=== PATIENT | female | born 1990 | race American Indian/Alaskan Native ===

== ENCOUNTER 2016-10-26 23:19 | Emergency (ER) | payer OTHER ==
[2016-10-27 00:27] LABS: Hematocrit 36.6 % (30.3-42.9); Hemoglobin 12.2 gm/dl (10.1-14.3); Mean Corpuscular HGB Conc 33 % (30-34); Mean Corpuscular Hemoglobin 31 pg (28-32); Mean Corpuscular Volume 92 fl (79-97); Platelet Count 293 K/mm3 (140-440); Red Cell Distribution Width 14.3 % (13.2-15.2)
[2016-10-27 00:53] LABS: Anion Gap 16 mmol/L; Blood Urea Nitrogen 17 mg/dL (7-17); Calcium 8.9 mg/dL (8.4-10.2); Carbon Dioxide 26 mmol/L (22-30); Chloride 101.8 mmol/L (98-107); Glucose 87 mg/dL (65-100); Potassium 4.1 mmol/L (3.6-5.0); Sodium 140 mmol/L (137-145)
[2016-10-27 02:18] VITALS: BP 120/84
[2016-10-27 03:59] LABS: Blastocytes % (Manual) 0 %
[2016-10-27 04:00] LABS: Anisocytosis Few; Diff Status Complete
[2016-10-27] MEDS ORDERED: DUONEB 0.5 MG-3 MG/3 ML SOLN IH ONE (04:46)
--- NOTE | 2016-10-27 04:53 | Emergency Department Report ---
ED Asthma HPI - General Chief Complaint: Chest Pain Stated Complaint: CHEST PAIN Time Seen by Provider: 10/27/16 04:22 Source: patient Mode of arrival: Ambulatory Limitations: No Limitations - History of Present Illness Initial Comments: This is a 26-year-old female that presents with asthma exacerbation. Patient stated had chest pain yesterday but has subsided today. Patient also complained of difficulty breathing. Patient stated has allergies to pollen which provokes asthma attacks. Patient currently denies shortness of breath, chest pain, numbness tingling, nausea vomiting, headache, dizziness, or abdominal pain. Patient's mother is currently at bedside. Patient does not seem toxic or ill in appearance. No signs of distress. Patient is well- nourished. Patient stated takes Ventolin as needed and last dose was today with mild relief. Patient denies any drug allergies. Patient stated does not have a PCP and received Ventolin in [place] at an urgent care. MD Complaint: "asthma attack" -: Gradual, days(s) (2) Asthma History: childhood onset Severity: moderate Context: allergen exposure (pollen) Associated Symptoms: chest pain. denies: productive cough, dry cough, fever, hemoptysis, leg edema, syncope Treatments Prior to Arrival: inhaled bronchodilator - Related Data Current Asthma Therapy: inhaled bronchodilator Home Medications Medication Instructions Recorded Confirmed Last Taken ALBUTEROL Inhaler 2 puff IH Q4H PRN 10/27/16 10/27/16 Unknown Previous Rx's Medication Instructions Recorded Last Taken Type Albuterol Sulfate [Ventolin HFA] 2 puff IH Q4H PRN #1 hfa.aer.ad 10/27/16 Unknown Rx Prednisone [predniSONE] 40 mg PO QDAY 5 Days 10/27/16 Unknown Rx Allergies Allergy/AdvReac Type Severity Reaction Status Date / Time No Known Allergies Allergy Unverified 10/27/16 00:06 ED Review of Systems ROS: Stated complaint: CHEST PAIN Other details as noted in HPI Constitutional: denies: chills, fever Eyes: denies: eye pain, eye discharge, vision change ENT: denies: ear pain, throat pain Respiratory: cough. denies: orthopnea, shortness of breath, SOB with exertion, SOB at rest, stridor, wheezing Cardiovascular: denies: chest pain, palpitations, dyspnea on exertion, orthopnea , edema, syncope, paroxysmal nocturnal dyspnea Endocrine: no symptoms reported Gastrointestinal: denies: abdominal pain, nausea, diarrhea Genitourinary: denies: urgency, dysuria, discharge Musculoskeletal: denies: back pain, joint swelling, arthralgia Skin: denies: rash, lesions Neurological: denies: headache, weakness, paresthesias Psychiatric: denies: anxiety, depression Hematological/Lymphatic: denies: easy bleeding, easy bruising ED Past Medical Hx - Past Medical History Hx Asthma: Yes - Surgical History Past Surgical History?: No - Social History Smoking Status: Never Smoker Substance Use Type: None - Medications Home Medications: Home Medications Medication Instructions Recorded Confirmed Last Taken Type ALBUTEROL Inhaler 2 puff IH Q4H PRN 10/27/16 10/27/16 Unknown History Albuterol Sulfate [Ventolin HFA] 2 puff IH Q4H PRN #1 hfa.aer.ad 10/27/16 Unknown Rx Prednisone [predniSONE] 40 mg PO QDAY 5 Days 10/27/16 Unknown Rx ED Physical Exam - General Limitations: No Limitations General appearance: alert, in no apparent distress - Head Head exam: Present: atraumatic, normocephalic - Eye Eye exam: Present: normal appearance, PERRL, EOMI Pupils: Present: normal accommodation - ENT ENT exam: Present: normal exam, normal orophraynx, mucous membranes moist, TM's normal bilaterally - Neck Neck exam: Present: normal inspection, full ROM. Absent: tenderness, meningismus, lymphadenopathy - Respiratory Respiratory exam: Present: normal lung sounds bilaterally. Absent: respiratory distress, wheezes, rales, rhonchi, stridor, chest wall tenderness, accessory muscle use, decreased breath sounds, prolonged expiratory - Cardiovascular Cardiovascular Exam: Present: regular rate, normal rhythm, normal heart sounds. Absent: bradycardia, tachycardia, irregular rhythm, systolic murmur, diastolic murmur, rubs, gallop - GI/Abdominal GI/Abdominal exam: Present: soft, normal bowel sounds - Extremities Exam Extremities exam: Present: normal inspection, full ROM, normal capillary refill. Absent: tenderness, pedal edema, joint swelling, calf tenderness - Back Exam Back exam: Present: normal inspection, full ROM. Absent: tenderness, CVA tenderness (R), CVA tenderness (L) - Neurological Exam Neurological exam: Present: alert, oriented X3, CN II-XII intact, normal gait - Psychiatric Psychiatric exam: Present: normal affect, normal mood - Skin Skin exam: Present: warm, dry, intact, normal color. Absent: rash ED Course Vital Signs 10/26/16 10/27/16 10/27/16 23:58 02:16 05:00 Temperature 97.8 F 98.1 F Pulse Rate 67 75 Pulse Rate [ 66 Anterior Bilateral Throughout] Respiratory 18 18 Rate Respiratory 16 Rate [Anterior Bilateral Throughout] Blood Pressure 126/88 120/84 Blood Pressure 126/88 [Left] O2 Sat by Pulse 100 100 Oximetry - Reevaluation(s) Reevaluation #1: 10/27/16 05:09 Peak flow prior to treatment of DuoNeb: 250 Reevaluation #2: 10/27/16 05:25 Reevaluated patient: Patient stated feels much better denies shortness of breath or chest pain. Denies difficulty breathing. Reevaluation #3: 10/27/16 05:42 Peak flow post DuoNeb: 300 ED Medical Decision Making - Lab Data Result diagrams: 10/27/16 00:11 10/27/16 00:11 - Medical Decision Making ED course: This is a 26-year-old female that presents with exacerbation of asthma 1-peak flow meter obtained prior to treatment of DuoNeb. 2- patient received Solu-Medrol 40 im. Patient tolerated. No signs of distress. 3- EKG obtained. Normal sinus rhythm. 4- CBC, BMP, troponin obtained: normal. 5- chest x-ray: Normal 6- I instructed the patient to obtain a primary care doctor for close monitoring of asthma. I notified the importance of proper treatment of asthma as severity of asthma if untreated. 7- patient received prednisone 40 mg by mouth for 5 days at the time of discharge. Patient also received Ventolin INH as needed at the time of discharge. 8- at the time of discharge the patient does not seem toxic or ill in appearance. No signs of respiratory distress. Patient agrees to discharge plan and treatment. No further questions noted by the patient. Critical care attestation.: If time is entered above; I have spent that time in minutes in the direct care of this critically ill patient, excluding procedure time. ED Disposition Clinical Impression: Exacerbation of asthma Disposition: DISCHARGED TO HOME OR SELFCARE Is pt being admited?: No Does the pt Need Aspirin: No Condition: Stable Instructions: Albuterol (By breathing), Prednisone (By mouth), Asthma (ED) Additional Instructions: Please follow up with a primary care doctor as soon as possible I have given you a list of primary care doctors/internal medicine. If symptoms worsen you can report back to emergency room. Take medications as prescribed Prescriptions: Albuterol Sulfate [Ventolin HFA] 2 puff IH Q4H PRN #1 hfa.aer.ad PRN Reason: Shortness Of Breath Prednisone [predniSONE] 40 mg PO QDAY 5 Days Referrals: [facility] [Outside] - 3-5 Days [facility] [Outside] - 3-5 Days AGUSTINA CHOWDHURY MD [Referring] - 3-5 Days DANYELL ANDERSON MD [Referring] - 3-5 Days [facility], [Primary Care Provider] - 3-5 Days SHERYL CUELLAR MD [Referring] - 3-5 Days MONA BOYKIN MD [Referring] - 3-5 Days Forms: Work/School Release Form(ED)
--- NOTE | 2016-10-27 05:00 | XRay Report ---
FINAL REPORT PROCEDURE: XR CHEST ROUTINE 2V TECHNIQUE: PA and lateral chest radiographs were obtained. CPT 70584 HISTORY: chest pain COMPARISON: No prior studies are available for comparison. FINDINGS: Heart: Normal. Mediastinum/Vessels: Normal. Lungs/Pleural space: Normal. Bony thorax: No acute osseous abnormality. Other: IMPRESSION: Normal examination.
== END 2016-10-27 06:11 | disposition home or self-care (01) ==
LOC: ED 23:19
DX: J45.901 Unspecified asthma with (acute) exacerbation (principal)
CPT/HCPCS: 36415; 71020; 80048; 84484; 85007; 85025; 93005; 93010; 94640; 96372; 99285; J2920